=== PATIENT | male | born 1995 | race Hispanic/Latino ===

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

== ENCOUNTER 2017-11-26 07:20 | Day surgery (SDC) | payer OTHER ==
[~2017-11-26] VITALS: Ht 190.5 cm; Wt 88.5 kg
[~2017-11-26 07:20] MED LIST changes: +COLACE100 MG PO
[2017-11-26 07:59] VITALS: BP 123/61
[2017-11-26 13:10] VITALS: BP 108/56
[2017-11-26 14:14] VITALS: BP 106/56
[2017-11-26 15:25] VITALS: BP 124/58
== END 2017-11-26 15:30 | disposition home or self-care (01) ==
LOC: SDC 07:20
PROC: 0VB Male Reproductive System, Excision (ICD-10-PCS; principal; 2017-11-26)
DX: Q53.111 Unilateral intraabdominal testis (principal)
CPT/HCPCS: 88305; J0690; J1100; J1170; J1885; J2250; J2405; J2710; J3010; S0020

== ENCOUNTER 2018-04-04 10:53 | Emergency (ER) | payer OTHER ==
[~2018-04-04] VITALS: Ht 190.5 cm; Wt 98.5 kg
[2018-04-04] MEDS ORDERED: NAPROSYN500 MG PO (11:48)
[2018-04-04 12:52] VITALS: BP 112/64
== END 2018-04-04 12:53 | disposition home or self-care (01) ==
LOC: EME 10:53
DX: G56.00 Carpal tunnel syndrome, unspecified upper limb (principal)
CPT/HCPCS: 99281; 99285